=== PATIENT | male | born 1995 | race Two or more races ===

== ENCOUNTER 2022-09-07 21:20 | Emergency (ER) | payer OTHER ==
[~2022-09-07] VITALS: Ht 193 cm; Wt 104.3 kg
[2022-09-08] MEDS ORDERED: PERCOCET 5-3251 EACH PO (00:33)
== END 2022-09-08 01:29 | disposition home or self-care (01) ==
LOC: ER 21:20
DX: S62.654A Nondisplaced fracture of middle phalanx of right ring finger, initial encounter for closed fracture (principal); W19.XXXA Unspecified fall, initial encounter; Y93.9 Activity, unspecified; Y92.9 Unspecified place or not applicable